=== PATIENT | male | born 1970 | race Caucasian/White ===

== ENCOUNTER 2016-09-22 07:59 | Day surgery (SDC) | payer OTHER ==
[2016-09-17 15:11] VITALS: BMI 33.5
[~2016-09-22 07:59] MED LIST: LACTATED RINGERS 1,000 ML IV SCH; MOXIFLOXACIN HCL 0.5% DROPS 3 ML BTL RIGHT EYE PRN
[2016-09-22 08:29] VITALS: RESP 16; TEMP 97.4
[2016-09-22] MEDS: PHENYLEPHRINE 2.5% OPHTH DRP 2ML OP NR ×3 (08:31→08:46)
[2016-09-22] MEDS: CYCLOPENTOLATE 1% OPHTH SOLN 2 ML BTL OP ONE ×3 (08:35→08:49)
[2016-09-22] MEDS ORDERED: fentaNYL (PF) 50 MCG/ML 2 ML AMP ONE (09:34)
[2016-09-22] MEDS ORDERED: MIDAZOLAM 2 MG/2 ML VIAL ONE (09:34)
[2016-09-22] MEDS ORDERED: diphenhydrAMINE 50 MG/ML 1 ML VIAL ONE (09:34)
[2016-09-22] MEDS ORDERED: EPINEPHrine (PF) 0.3 ML in BALANCED SALT IRRIG SOLN COMB2 500 ML IRRIGATION ONE ×4 (09:44)
[2016-09-22] MEDS ORDERED: CHONDROITIN-SOD HYALURONATE 1 EACH SYRINGE (0.75 ML) INTRAOCULA ONE (09:47)
[2016-09-22] MEDS ORDERED: LIDOCAINE 1% (PF) 10MG/ML VIAL MISCELLANE ONE (09:47)
[2016-09-22] MEDS ORDERED: HYALURONATE SODIUM INTRAOCULAR 1 EACH SYRINGE (12MG/ML) INTRAOCULA ONE (09:47)
[2016-09-22] MEDS ORDERED: BALANCED SALT IRRIG SOLN COMB2 15 ML IRRIG.SOLN IRRIGATION ONE (09:47)
--- NOTE | 2016-09-22 10:16 | P.OP ---
Date of Procedure: 09/22/16 Preoperative Diagnosis: NS & CS Postoperative Diagnosis: same Procedure(s) Performed: PIOL, OD Implants: [id number] 5.00 Anesthesia: MAC Surgeon: Wayne Cowan Estimated Blood Loss (ml): 0 Pathology: none sent Condition: stable Disposition: same day Indications for Procedure: blurry vision Operative Findings: No complications Description of Procedure:
[2016-09-22 11:07] VITALS: BP 123/71; PULSE 70
[2016-09-22] MEDS ORDERED: ACETAMINOPHEN TAB 325 MG TAB PO ONE (11:12)
[2016-09-23] MEDS ORDERED: TETRACAINE 0.5% OPHTH (PF) DROPS 4 ML BTL OP ONE (05:00)
[2016-09-23] MEDS ORDERED: TIMOLOL 0.5% OPHTH SOLN (PF) 0.2 ML DROPERETTE OP ONE (05:00)
[2016-09-23] MEDS ORDERED: MOXIFLOXACIN HCL 0.5% DROPS 3 ML BTL OP ONE (05:00)
--- NOTE | 2016-09-23 15:54 | OP ---
DATE OF SURGERY: 09/22/2016 PROCEDURE: CLEAR CORNEA PHACOEMULSIFICATION OF CATARACT AND INTRAOCULAR LENS IMPLANT, RIGHT EYE. COMPANY MANAGER: PREOPERATIVE DIAGNOSIS: Nuclear sclerosis and cortical sclerosis, right eye. POSTOPERATIVE DIAGNOSIS: Nuclear sclerosis and cortical sclerosis, right eye. ESTIMATED BLOOD LOSS: Zero. SPECIMEN TAKEN: None. NARRATIVE: After obtaining the appropriate consent, the patient was brought to the Operating Room where the patient was placed under cardiac monitoring and prepped and draped in the usual sterile manner. At the 11 oclock position a 15-degree super sharp blade was used to create a paracentesis followed by instillation of 1% Xylocaine MPF 50:50 mix with BSS into the anterior chamber. This was followed by Amvisc to stabilize the anterior chamber. At the 9 o clock position a self-sealing corneal flap incision was created using 2.8 mm macrina keratome. A cystatome was used to initiate a continuous tear capsulorrhexis which was completed with the Utrata forceps. A Binkhorst cannula was used to hydrodissect the lens nucleus followed by hydrodelineation. Phacoemulsification of the lens was performed utilizing phacochop in 0 seconds at 0% power. The remaining cortical material was removed using the irrigation aspiration mode followed by additional 1% Xylocaine MPF into the anterior chamber followed by viscoelastic to stabilize the capsular bag. An [id number] 5.0 diopter posterior chamber lens was placed into the capsular bag without difficulty. The remaining viscoelastic material was removed from the anterior chamber with the irrigation/aspiration. Balanced salt solution was used to normalize the intraocular pressure. The incision was checked for watertight integrity. The patient then received two drops of 0.5% timolol followed by two drops Vigamox, was lightly patched and shielded in the usual manner. There were no complications from the procedure. The patient tolerated the procedure well and was returned to recovery in good condition. RONN
== END 2016-09-22 12:04 | disposition home or self-care (01) ==
LOC: OR 07:59
PROVIDERS: ATTEND Ophthalmology
DX: H25.011 Cortical age-related cataract, right eye (principal); H52.11 Myopia, right eye; H52.223 Regular astigmatism, bilateral
CPT/HCPCS: 66984; C1780; J2250; J1200; J0171; J3010; J2001

== ENCOUNTER 2016-10-20 09:01 | Day surgery (SDC) | payer OTHER ==
[2016-10-12 11:36] VITALS: BMI 33.9
[~2016-10-20 09:01] MED LIST changes: +BUPIVACAINE (PF) 0.5% 4.5 ML, HYALURONIDASE, HUMAN RECOMB 150 UNIT, LIDOCAINE (PF) 90 MG IO NR; +LIDOCAINE 1% 20 ML VIAL (10MG/ML) FOR IV START INTRADERMA PRN; -MOXIFLOXACIN HCL 0.5% DROPS 3 ML BTL RIGHT EYE PRN; +TOBRA-DEXAMET 0.3-0.1% OPHTH DROPS 2.5 ML BTL OPHTHALMIC NR
[2016-10-20] MEDS: PHENYLEPHRINE 2.5% OPHTH DRP 2ML OP NR ×3 (10:42→10:54)
[2016-10-20 10:45] VITALS: RESP 16; TEMP 98
[2016-10-20] MEDS: CYCLOPENTOLATE 1% OPHTH SOLN 2 ML BTL OP NR ×3 (10:46→10:57)
[2016-10-20] MEDS ORDERED: LIDOCAINE 1% 20 ML VIAL (10MG/ML) FOR IV START INTRADERMA ONE (10:48)
[2016-10-20] MEDS ORDERED: HYALURONATE SODIUM INTRAOCULAR 1 EACH SYRINGE (12MG/ML) INTRAOCULA ONE (11:27)
[2016-10-20] MEDS ORDERED: LIDOCAINE 1% (PF) 10MG/ML VIAL MISCELLANE ONE (11:28)
[2016-10-20] MEDS ORDERED: BALANCED SALT IRRIG SOLN COMB2 15 ML IRRIG.SOLN INTRAOCULA ONE (11:31)
[2016-10-20] MEDS ORDERED: MIDAZOLAM 2 MG/2 ML VIAL ONE (11:33)
[2016-10-20] MEDS ORDERED: fentaNYL (PF) 50 MCG/ML 2 ML AMP ONE (11:33)
[2016-10-20] MEDS ORDERED: LIDOCAINE 1% INJ 10MG/ML (20 ML MDV) ONE (11:33)
[2016-10-20] MEDS ORDERED: PROPOFOL 10 MG/ML 20 ML VIAL IV ONE (11:33)
[2016-10-20] MEDS ORDERED: BUPIVACAINE (PF) 0.5% 30 ML VIAL ONE (11:45)
[2016-10-20] MEDS ORDERED: TIMOLOL 0.5% OPHTH SOLN (PF) 0.2 ML DROPERETTE LEFT EYE ONE (12:00)
[2016-10-20] MEDS ORDERED: MOXIFLOXACIN HCL 0.5% DROPS 3 ML BTL LEFT EYE ONE (12:00)
--- NOTE | 2016-10-20 12:23 | P.OP ---
Date of Procedure: 10/20/16 Preoperative Diagnosis: NS & CS & regular astigmatism Postoperative Diagnosis: same Procedure(s) Performed: PIOL OS & LRI OS Implants: [id number] 3.00 Anesthesia: regional Surgeon: Wayne Cowan Estimated Blood Loss (ml): 0 Pathology: none sent Condition: stable Disposition: same day Indications for Procedure: blurry vision Operative Findings: No complications Description of Procedure:
[2016-10-20 12:24] VITALS: PULSE 80
[2016-10-20 12:50] VITALS: BP 125/77
--- NOTE | 2016-10-21 10:21 | OP ---
DATE OF SERVICE: 10/20/2016 PROCEDURE: Phacoemulsification of cataract and intraocular lens implant of the left eye with a limbo-relaxing incision. PREOPERATIVE DIAGNOSIS: Nuclear sclerosis, cortical sclerosis and regular astigmatism. POSTOPERATIVE DIAGNOSIS: Nuclear sclerosis, cortical sclerosis and regular astigmatism. SURGEON: DR. JYOTI DORSEY ANESTHESIA: Topical. ESTIMATED BLOOD LOSS: None. SPECIMEN TAKEN: None. NARRATIVE: After obtaining the appropriate consent, the patient was brought to the operating room. There he was asked to sit upright and the axes of 0 and 180 degrees were identified and marked with a Gentian Dorcas marker. He was then placed in the proper supine position where he received a retrobulbar anesthetic consisting of 1% Lidocaine without epinephrine, 2.5% Marcaine without epinephrine and 100 units of ( ) approximately 7 mL of this solution was placed in the retrobulbar space with a 25 gauge Puentes needle. A Honan balloon was placed on the eye for 10 minutes and upon removal, confirmation of adequate akinesia of the extraocular muscles was confirmed. He was then prepped and draped in the usual sterile manner. He was approached from his left temporal side and using previously acquired corneal topography information , the axes of 85 and 160 degrees was identified and marked using the ( ) corneal marking set. A pair of limbo-relaxing incisions was performed between those axes of 80 and 160 degrees at a depth of 600 microns. At the 6 o'clock position, a 1.1 mm stab blade was used to create a paracentesis port. Through this opening Amvisc was instilled to stabilize the anterior chamber. At the 3 o 'clock position, a 2.5 mm keratome was used to creatine a self-sealing corneal flap incision in a Langerman's fashion. Through this opening, a cystotome was introduced to begin a continuous terra capsulorrhexis which was completed using the Utrata forceps. Hydrodissection and hydrodelineation of the leans was accomplished in balanced salt solution. Phacoemulsification of the lens was accomplished without any time or energy. This was followed by removal of the remaining cortical material under irrigation and aspiration. Additional Amvisc was used to stabilize the capsular bag and a Bausch and Lomb model LI61AO 3.0 Diopter posterior chamber intraocular lens was then inserted into the capsular bag without difficulty. The remaining viscoelastic was removed from in and around the intraocular lens as well as the anterior chamber. The eye was brought to normal intraocular pressure through the paracentesis port and the incision was conformed water tight. However, to ensure that the eye remains water tight, ReSure was used on the temporal incision. The patient then received 2 drops of 0.5% Timolol followed by 2 drops of moxifloxacin and then he was lightly patched and shielded in the usual manner. There were no complications from the procedure. He tolerated the procedure well and was returned to Outpatient Recovery in good condition. RONN
== END 2016-10-20 12:57 | disposition home or self-care (01) ==
LOC: OR 09:01
PROVIDERS: ATTEND Ophthalmology
DX: H25.12 Age-related nuclear cataract, left eye (principal); H25.012 Cortical age-related cataract, left eye; H52.223 Regular astigmatism, bilateral; H52.4 Presbyopia; Z96.1 Presence of intraocular lens; H52.13 Myopia, bilateral; Z79.899 Other long term (current) drug therapy
CPT/HCPCS: 66984; C1780; J2250; J3470; J2001 ×3; J3010; J2704

== ENCOUNTER → 2020-03-11 | Outpatient (CLI) | payer BC, OTHER | END | disposition home or self-care (01) | LOC: LABWHC1 11:20 | PROVIDERS: ATTEND Family Medicine | DX: Z20.828 Contact with and (suspected) exposure to other viral communicable diseases (principal) | CPT/HCPCS: U0003; C9803 ==

== ENCOUNTER 2020-09-13 09:49 | Emergency (ER) | payer BC, MEDICAID, OTHER ==
[2020-09-13 09:58] VITALS: RESP 18
[2020-09-13] MEDS: diphenhydrAMINE 50 MG/ML 1 ML VIAL IVP STA (09:58)
[2020-09-13] MEDS: FAMOTIDINE 20 MG/2 ML VIAL IV STA (09:58)
[2020-09-13] MEDS: methylPREDNISolone SOD SUCCI 125 MG/2 ML VIAL IV STA (09:59)
[2020-09-13] MEDS: MAG HYDROX/AL HYDROX/SIMETH 30 ML CUP PO STA (10:04)
[2020-09-13] MEDS: SODIUM CHLORIDE 0.9% 500 ML 500 ML IV ONE (10:04)
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
[2020-09-13 11:43] VITALS: BP 126/85; PULSE 65; TEMP 98.1
== END 2020-09-13 11:38 | disposition home or self-care (01) ==
LOC: EC 09:49
DX: T63.481A Toxic effect of venom of other arthropod, accidental (unintentional), initial encounter (principal)
CPT/HCPCS: 93005; 99284; 96374; 96375 ×2; 96361; J1200; J2930

== ENCOUNTER 2023-11-02 09:19 | Day surgery (SDC) | payer OTHER ==
[2023-11-02] MEDS ORDERED: LACTATED RINGERS 1,000 ML BAG ONE (11:13)
[2023-11-02] MEDS ORDERED: PROPOFOL 10 MG/ML 20 ML VIAL IV ONE (11:13)
== END 2023-11-02 12:36 | disposition home or self-care (01) ==
LOC: ORWHC2ENDO 09:19
PROVIDERS: ATTEND Surgery Plastic and Reconstructive Surgery
DX: Z12.11 Encounter for screening for malignant neoplasm of colon (principal)
CPT/HCPCS: 45378